=== PATIENT | male | born 1945 | race Caucasian/White ===

== ENCOUNTER → 2017-11-13 | Outpatient (CLI) | payer MEDICARE ==
--- NOTE | 2017-11-17 10:16 | US ---
EXAMINATION TYPE: US duplex aorta DATE OF EXAM: 11/13/2017 COMPARISON: NONE CLINICAL HISTORY: Z13.6 Screening for AAA. EXAM MEASUREMENTS: Abdominal Aorta: Proximal: 2.2 x 1.9 cm Mid: 1.8 x 1.8 cm Distal: 1.6 x 2.0 cm Bifurcation: obscured by overlying gas No evidence for aneurysm as imaged IMPRESSION: Aortic bifurcation is obscured by bowel gas, otherwise no sonographic evidence of abdomin al aortic aneurysm.
== END | disposition home or self-care (01) ==
LOC: RADUSMAIN 16:28
PROVIDERS: ATTEND Family Medicine
DX: Z13.6 Encounter for screening for cardiovascular disorders (principal)
CPT/HCPCS: 93979

== ENCOUNTER → 2021-01-17 | Outpatient (CLI) | payer MEDICARE ==
[2021-01-17 15:14] LABS: Basophils # (A) 0.06 X 10*3/uL (0.00-0.10); Basophils % (A) 0.8 %; Eosinophils # (A) 0.35 X 10*3/uL (0.04-0.35); Eosinophils % (A) 4.5 %; HCT 45.9 % (39.6-50.0); HGB 15.1 g/dL (13.0-17.0); Lymphocytes # (A) 1.48 X 10*3/uL (0.90-5.00); Lymphocytes % (A) 18.8 %; MCH 31.7 pg (27.0-32.0); MCHC 32.9 g/dL (32.0-37.0); MCV 96.4 fL (80.0-97.0); Mean Platelet Volume 9.5 fL (9.5-12.2); Monocytes # (A) 0.55 X 10*3/uL (0.20-1.00); Neutrophils # (A) 5.41 X 10*3/uL (1.80-7.70); Neutrophils % (A) 68.8 %; Platelet Count 176 X 10*3/uL (140-440); RBC 4.76 X 10*6/uL (4.40-5.60); RDW 12.5 % (11.5-14.5); WBC 7.86 X 10*3/uL (4.50-10.00)
[2021-01-18 01:42] LABS: African American GFR (CKD) 86.2 (60.0-200.0); Albumin/Globulin Ratio 1.74 (1.60-3.17); Anion Gap 9.3 mmol/L (4.00-12.00); Calcium 9.1 mg/dL (8.7-10.3); Carbon Dioxide 25.7 mmol/L (21.6-31.8); Chol/HDL Ratio 3.52; Globulin 2.3 g/dL (1.6-3.3); LDL Cholesterol,Calculated 113.4 mg/dL (0.0-131.0); Non-African American GFR(CKD) 74.3 (60.0-200.0); Potassium 4.2 mmol/L (3.5-5.5); Total Protein 6.3 g/dL (6.2-8.2); VLDL Calculation 12.6 mg/dL (5.00-40.00)
[2021-01-18 01:49] LABS: PSA Annual Screen 0.5 ng/mL (0.0-4.0)
== END | disposition home or self-care (01) ==
LOC: LABWHC1 07:09
PROVIDERS: ATTEND Family Medicine
DX: Z00.01 Encounter for general adult medical examination with abnormal findings (principal); Z12.5 Encounter for screening for malignant neoplasm of prostate; Z13.29 Encounter for screening for other suspected endocrine disorder; Z13.220 Encounter for screening for lipoid disorders
CPT/HCPCS: 80061; 80053; 84443; 85025; 36415; G0103

== ENCOUNTER → 2021-02-14 | Outpatient (CLI) | payer MEDICARE ==
[2021-02-14 15:58] LABS: African American GFR (CKD) 68.6 (60.0-200.0); Albumin/Globulin Ratio 1.6 (1.60-3.17); Anion Gap 5.7 mmol/L (4.00-12.00); Calcium 8.8 mg/dL (8.7-10.3); Carbon Dioxide 27.3 mmol/L (21.6-31.8); Globulin 2.5 g/dL (1.6-3.3); Non-African American GFR(CKD) 59.2 (60.0-200.0); Potassium 4.7 mmol/L (3.5-5.5); Total Bilirubin 0.9 mg/dL (0.3-1.2); Total Protein 6.5 g/dL (6.2-8.2)
== END | disposition home or self-care (01) ==
LOC: LABWHC1 08:09
PROVIDERS: ATTEND Family Medicine
DX: R94.5 Abnormal results of liver function studies (principal)
CPT/HCPCS: 36415; 80053

== ENCOUNTER → 2021-02-21 | Outpatient (CLI) | payer MEDICARE ==
[2021-02-21 15:49] LABS: Basophils # (A) 0.04 X 10*3/uL (0.00-0.10); Basophils % (A) 0.5 %; Eosinophils # (A) 0.31 X 10*3/uL (0.04-0.35); Eosinophils % (A) 4.2 %; HCT 47.2 % (39.6-50.0); HGB 15.4 g/dL (13.0-17.0); Lymphocytes # (A) 1.41 X 10*3/uL (0.90-5.00); Lymphocytes % (A) 19.1 %; MCH 31.6 pg (27.0-32.0); MCHC 32.6 g/dL (32.0-37.0); MCV 96.9 fL (80.0-97.0); Mean Platelet Volume 9.7 fL (9.5-12.2); Monocytes # (A) 0.53 X 10*3/uL (0.20-1.00); Monocytes % (A) 7.2 %; Neutrophils # (A) 5.05 X 10*3/uL (1.80-7.70); Neutrophils % (A) 68.6 %; Platelet Count 190 X 10*3/uL (140-440); RBC 4.87 X 10*6/uL (4.40-5.60); RDW 12.1 % (11.5-14.5); WBC 7.37 X 10*3/uL (4.50-10.00)
[2021-02-21 20:09] LABS: African American GFR (CKD) 85.6 (60.0-200.0); Albumin 3.8 g/dL (3.80-4.90); Albumin/Globulin Ratio 1.58 (1.60-3.17); Anion Gap 7.5 mmol/L (4.00-12.00); Calcium 9.2 mg/dL (8.7-10.3); Carbon Dioxide 23.5 mmol/L (21.6-31.8); Globulin 2.4 g/dL (1.6-3.3); Non-African American GFR(CKD) 73.8 (60.0-200.0); Potassium 4.3 mmol/L (3.5-5.5); Total Bilirubin 0.8 mg/dL (0.2-1.2); Total Protein 6.2 g/dL (6.2-8.2)
[2021-02-21 22:06] LABS: Hemoglobin A1C 5.3 % (4.0-6.0)
== END | disposition home or self-care (01) ==
LOC: LABWHC1 06:59
PROVIDERS: ATTEND Family Medicine
DX: R94.5 Abnormal results of liver function studies (principal)
CPT/HCPCS: 36415; 80053; 83036; 85025

== ENCOUNTER → 2021-03-27 | Outpatient (CLI) | payer MEDICARE ==
--- NOTE | 2021-03-27 08:47 | US ---
EXAMINATION TYPE: US liver DATE OF EXAM: 03/27/2021 COMPARISON: NONE CLINICAL HISTORY: R94.5 increased liver function. elevated labs with no symptoms EXAM MEASUREMENTS: Liver Length: 14.0 cm Gallbladder Wall: 0.2 cm CBD: 0.5 cm Right Kidney: 9.8 x 4.2 x 4.8 cm Pancreas: limited views appear wnl Liver: wnl Gallbladder: wnl Evidence for sonographic Rodriguez's sign: no CBD: wnl Right Kidney: lateral cyst noted = 1.6 x 1.5cm IMPRESSION: Right renal cys noted.
== END | disposition home or self-care (01) ==
LOC: RADUSWWP 07:12
PROVIDERS: ATTEND Family Medicine
DX: N28.1 Cyst of kidney, acquired (principal)
CPT/HCPCS: 76705

== ENCOUNTER → 2023-06-02 | Outpatient (CLI) | payer MEDICARE ==
--- NOTE | 2023-06-03 08:32 | CA ---
Stress Echo Report Dougie Michael Age: 78 Gender: M : 1945 Exam Date: 06/02/2023 09:19 Exam Location: [place] Stress Ht (in): 72 Wt (lb): 199 Ordering Physician: Chris Valentin MD Referring Physician: Barbie MARIE Marketing Project Manager: VICTORINA Technologist Procedure CPT: Indication: R00.2 ICD-9 Codes: Rhythm: Patient History: Cardiac Medications: Medications in past 24 hours: Contrast: Stress Results Protocol: Jayjay Total dose(mL): Exercise Duration (min:sec): 6:[address] Depression (mm): Angina Score: Pluliam Score: METS: 8.1 Resting HR: 59 Resting BP: 148 / 77 Peak HR: 140 Peak BP: 224 / 74 Max Predicted HR: 144 97 % Max Predicted HR Target HR: 122 Double Product: [id number] Stress Summary: BP Response: Reason for Termination: Reached target heart rate or work-load Cardiac Symptoms: NO SYMPTOMS ECG Analysis Resting ECG: Normal sinus rhythm, normal ECG. Heart rate 60 beats a minute Stress ECG: Nonischemic ECG response to exercise. No significant ST segment changes diagnostic for ischemia Arrhythmia: Occasional premature ventricular contractions. No sustained arrhythmias Echo Analysis Resting Echo: Normal global and regional wall motion at rest. Peak Echo Analysis: Every augmentation of all echocardiographic segment with peak stress Normal global and regional wall motion with stress. Nonischemic echocardiographic response to exercise MEASUREMENTS (Male/Female) Normal Values CONCLUSIONS Treadmill stress echocardiogram Fair exercise tolerance, achieving 8.1 METS and 97 % of max predicted heart rate. Patient walked for 6 minutes 59 seconds Hypertensive response to exercise with the exception of BP measuring 224/74 mmHg Nonischemic ECG response to exercise Normal resting echocardiogram Normal stress echocardiogram Dr Schuyler Odonnell (Electronically Signed) Final Date: 02 June 2023 12:56
== END | disposition home or self-care (01) ==
LOC: RADNMMAIN 08:44
PROVIDERS: ATTEND Family Medicine
DX: R00.2 Palpitations (principal); R94.31 Abnormal electrocardiogram [ECG] [EKG]
CPT/HCPCS: 93351